=== PATIENT | male | born 1965 | race American Indian/Alaskan Native ===

== ENCOUNTER 2016-12-12 13:20 | Emergency (ER) | payer MEDICAID ==
[2016-12-12] MEDS ORDERED: FUL-GLO OP ONE (14:10)
[2016-12-12] MEDS ORDERED: TETRACAINE 0.5% OU ONE (14:11)
[2016-12-12 14:14] VITALS: BP 115/77
--- NOTE | 2016-12-12 14:17 | Emergency Department Report ---
Entered by PHILIP SIERRA, acting as scribe for DARIANA ARTEAGA NP. Chief Complaint: Eye Problems Stated Complaint: BOTH EYES REDNESS Time Seen by Provider: 12/12/16 14:09 - HPI History of Present Illness: 51 y/o male presents with bilateral eye redness and drainage that started 5 days ago. Pt denies eye pain ,fevers or visual disturbances. Pt notes living in a shelter. - ROS Review of Systems: +bilateral eye redness +bilateral eye drainage -fever - Exam Vital Signs: Vital Signs 12/12/16 14:10 Temperature 98.7 F Pulse Rate 80 Respiratory 20 Rate Blood Pressure 115/77 O2 Sat by Pulse 99 Oximetry Physical Exam: bilateral eye conjunctival injection with drainage noted. a and o x4 MSE screening note: Focused history and physical exam performed. Due to findings the following was ordered: [facility] ED Disposition for MSE Condition: Stable This documentation as recorded by the scribeMARIELA RYAN,accurately reflects the service I personally performed and the decisions made by CHANDLER francis TRACY M, NP.
--- NOTE | 2016-12-12 18:56 | Emergency Department Report ---
[facility] Chief Complaint: Eye Problems Stated Complaint: BOTH EYES REDNESS Time Seen by Provider: 12/12/16 14:09 Side: Bilateral Severity: mild Symptoms: Yes Eye Itching, Yes Eye Redness, Yes Purulent Drainage, No Eye Pain, No Mucous Drainage, No Blurred Vision, No Preceding URI, No H/O Allergic Rhinitis, No Contact Lens Use, No Trauma, No Fever, No Headache Other History: This is a 51-year-old male nontoxic, well nourished in appearance , no acute signs of distress the [place] [facility] complaining of bilateral eyes irritation, itching, redness, with yellow discharge x5 days. Patient denies any trauma. Denies any foreign body sensation. Patient that he woke up with symptoms being in left eye and developed similar symptoms to the right eye. Patient denies any blurry vision. Denies any visual changes, stiff neck, headache, chest pain, shortness of breath, nausea or vomiting. Denies any fever. Denies past medical history or drug allergies. ED Review of Systems ROS: Stated complaint: BOTH EYES REDNESS Other details as noted in HPI Constitutional: denies: chills, fever Eyes: eye discharge, other (itching). denies: eye pain, vision change ENT: denies: ear pain, throat pain Respiratory: denies: cough, shortness of breath, wheezing Cardiovascular: denies: chest pain, palpitations Endocrine: no symptoms reported Gastrointestinal: denies: abdominal pain, nausea, diarrhea Genitourinary: denies: urgency, dysuria Musculoskeletal: denies: back pain, joint swelling, arthralgia Skin: denies: rash, lesions Neurological: denies: headache, weakness, paresthesias Psychiatric: denies: anxiety, depression Hematological/Lymphatic: denies: easy bleeding, easy bruising ED Past Medical Hx - Past Medical History Previous Medical History?: Yes Hx Psychiatric Treatment: Yes (Schizophrenia) - Surgical History Past Surgical History?: Yes Additional Surgical History: Abdulkadir foot surgery - Social History Smoking Status: Current Every Day Smoker Substance Use Type: Prescribed - Medications Home Medications: Home Medications Medication Instructions Recorded Confirmed Last Taken Type Polymyxin B Sulf/Trimethoprim 2 drop OP Q3HR 10 Days 12/12/16 Unknown Rx [Polytrim Eye Drops 26757sfqop/0.1%] [facility] Exam - Exam General: Vital signs noted. No distress. Alert and acting appropriately. Eye Exam: Both Purulent Discharge, Neither Injection, Neither Chemosis, Neither Abnormal Pupil, Neither EOMI, Neither Eye Foreign Body, Neither Lid Foreign Body , Neither Mucous Discharge, Neither Fluorescein Uptake, Neither Fluorescein Uptake (slit lamp), Neither Cell/Flare (slit lamp), Neither Corneal Edema, Neither Photophobia HEENT: No Nasal Congestion, No Pharyngeal Erythema Remainder of HEENT: Normal Lungs: Yes Clear Lung Sounds, Yes Good Air Exchange, No Wheezes, No Stridor, No Cough, No Nasal Flaring, No Retractions, No Use of Accessory Muscles Exam: GENERAL: The patient is a well-developed, well-nourished female in no apparent distress. Patient is alert and acting appropriately for age. Alert and oriented 3, no apparent distress, normal gait, atraumatic. HEENT: Head is normocephalic and atraumatic. PERRL, Extraocular muscles are intact. Pupils are equal, round, and reactive to light and accommodation. Bilateral conjunctival erythema with purulent drainage. Nares appeared normal. Mouth is well hydrated and without lesions. Mucous membranes are moist. Posterior pharynx clear of any exudate or lesions. Mouth is well hydrated and without lesions. Tonsils not erythematous or swollen. Uvula midline. Tongue elevated. Mucous members are moist. Posterior pharynx clear, no exudate or lesions. Patent airways. . NECK: Supple. No carotid bruits. No lymphadenopathy or thyromegaly.nontender. No meningitic signs are noted. . LUNGS: Clear to auscultation. Non labor breathing. No intercostal retractions. Symmetrical with respiration, no wheezing, no rales, or crackles. . HEART: Regular rate and rhythm without murmur, rubs or gallops. No reproducible. S1, S2 present, regular rate and rhythm without murmur, no rubs, no gallops. . ABDOMEN: Soft, nontender, and nondistended. Positive bowel sounds. No hepatosplenomegaly was noted. No guarding or rebound tenderness, negative epigastric bruit. Negative psoas sign, negative mcfarlane sign, negative McBurneys sign. . EXTREMITIES: Without any cyanosis, clubbing, rash, lesions or edema. Peripheral pulses intact. Capillary refill less than 2 seconds. Full range of motion bilaterally. . NEUROLOGIC: Cranial nerves II through XII are grossly intact. Alert and oriented x 3. Normal gait. Symmetrical strength and sensation. Reflexes 2+ throughout. Cerebellar testing normal. GCS score of 15. . PSYCHIATRIC: Normal affect with no suicidal or homicidal ideations. On the wood lamp, there is no signs of any corneal abrasion or foreign body noted, bilaterally. ED Course Vital Signs 12/12/16 14:10 Temperature 98.7 F Pulse Rate 80 Respiratory 20 Rate Blood Pressure 115/77 O2 Sat by Pulse 99 Oximetry - Reevaluation(s) Reevaluation #1: 12/12/16 18:54 Patient is in full sentences with no signs of distress. ED Medical Decision Making - Medical Decision Making 51-year-old male presents with bilateral conjunctivitis. Correa's lamp there is no sign of any corneal abrasion or foreign body noted. Patient became very with Polytrim to both eyes. Patient was referred to the curriculum writer for follow-up in 24 hours. At time time of discharge, the patient does not seem toxic or ill in appearance. No acute signs of distress noted. Patient agrees to discharge treatment plan of care. No further questions noted by the patient. Critical care attestation.: If time is entered above; I have spent that time in minutes in the direct care of this critically ill patient, excluding procedure time. ED Disposition Clinical Impression: Conjunctivitis Qualifiers: Conjunctivitis type: unspecified Laterality: bilateral Qualified Code(s): H10.9 - Unspecified conjunctivitis Disposition: DC-01 TO HOME OR SELFCARE Is pt being admited?: No Does the pt Need Aspirin: No Condition: Stable Instructions: Conjunctivitis (ED), Antibiotic Combinations (Into the eye) Additional Instructions: Follow-up with the curriculum writer in 24 hours and take full course of antibiotics as prescribed. If symptoms are getting worse or developing blurred vision or pain return to emergency room as was possible. Prescriptions: Polymyxin B Sulf/Trimethoprim [Polytrim Eye Drops [id number]/0.1%] 2 drop OP Q3HR 10 Days Referrals: PRIMARY MD BROOKE [Primary Care Provider] - 3-5 Days TONIO MORALES MD [Staff Physician] - 3-5 Days [facility] [Outside] - 3-5 Days [facility] [Outside] - 3-5 Days Forms: Work/School Release Form(ED)
== END 2016-12-12 20:36 | disposition home or self-care (01) ==
LOC: ED 13:20
DX: H10.9 Unspecified conjunctivitis (principal); F20.9 Schizophrenia, unspecified; F17.200 Nicotine dependence, unspecified, uncomplicated
CPT/HCPCS: 99283